=== PATIENT | female | born 1960 | race Caucasian/White ===

== ENCOUNTER 2018-04-16 19:48 | Emergency (ER) | payer OTHER ==
--- NOTE | 2018-04-16 19:58 | C.PDOC ---
History Of Present Illness 57 years old female, works as an ICU nurse, presents to ED for complaints of generalized urticaria associated with diffuse itching. Patient is tolerating PO and her own secretion. Unknown etiology. Denies fever, chills, nausea, or vomiting. Happened at work Time Seen by Provider: 04/16/18 19:57 Chief Complaint (Nursing): Abnormal Skin Integrity History Per: Patient History/Exam Limitations: no limitations Onset/Duration Of Symptoms: Hrs Current Symptoms Are (Timing): Still Present Quality Of Symptoms: Itching Severity: Moderate Pain Scale Rating Of: 4 Recent travel outside of the [place]: No Past Medical History Reviewed: Historical Data, Nursing Documentation, Vital Signs Vital Signs: Last Vital Signs Temp 98.1 F 04/16/18 19:50 Pulse 71 04/16/18 19:50 Resp 20 04/16/18 19:50 BP 160/85 H 04/16/18 19:50 Pulse Ox 98 04/16/18 20:11 - Medical History PMH: No Chronic Diseases Surgical History: No Surg Hx Family History: States: No Known Family Hx - Social History Hx Alcohol Use: No Hx Substance Use: No - Immunization History Hx Tetanus Toxoid Vaccination: No Hx Influenza Vaccination: Yes Hx Pneumococcal Vaccination: No Review Of Systems Constitutional: Negative for: Fever, Chills Gastrointestinal: Negative for: Nausea, Vomiting, Abdominal Pain, Diarrhea Skin: Positive for: Rash Neurological: Negative for: Weakness, Numbness Psych: Negative for: Suicidal ideation Physical Exam - Physical Exam Appears: Non-toxic, No Acute Distress Skin: Rash (Diffuse urticarial rash) Head: Normacephalic Eye(s): bilateral: Normal Inspection Nose: No Discharge Oral Mucosa: Moist Tongue: No Swelling Lips: No Swelling Throat: No Erythema, No Exudate, No Drooling Neck: Trachea Midline, Supple Chest: Symmetrical, No Tenderness Cardiovascular: Rhythm Regular, No Murmur Respiratory: No Decreased Breath Sounds, No Rales, No Rhonchi, No Wheezing Gastrointestinal/Abdominal: Soft, No Tenderness, No Distention Extremity: Normal ROM, No Deformity Extremity: Bilateral: Atraumatic, Normal Color And Temperature, Normal ROM Neurological/Psych: Oriented x3 (Awake and alert), Normal Speech (Speaking in full sentecnes; normal voice), Other (No focal deficits ) Gait: Steady ED Course And Treatment O2 Sat by Pulse Oximetry: 98 (RA) Pulse Ox Interpretation: Normal Progress Note: Administered Benadryl, Pepcid, SOLU-Medrol, and IV fluids. Re- Evaluation: - Patient now states that she used to be allergic to shrimp and lobster; and she had shrimp today. Reevaluation Time: 21:38 Reassessment Condition: Improved Critical Care Time - Critical Care Note Total Time (in mins): 30 Documented critical care: time excludes all time spent performing seperately billable procedures. Disposition Counseled Patient/Family Regarding: Studies Performed, Diagnosis, Need For Followup, Rx Given - Disposition Referrals: Tree Garcia MD [Staff Provider] - Disposition: HOME/ ROUTINE Disposition Time: 20:00 Condition: FAIR Additional Instructions: Please return if symptoms recur. ALso use benadrayl, pepcid, claritin,. Prescriptions: Epinephrine [Epipen] 0.3 mg IJ ONCE PRN #2 auto.injct PRN Reason: Anaphylaxis Prednisone [Deltasone] 20 mg PO DAILY #5 tablet Instructions: Hives, Skin Rash (DC) Forms: [employer] (Greenlandic) - Clinical Impression Clinical Impression: Allergic reaction - Scribe Statement The provider has reviewed the documentation as recorded by the Scribjeremy Gomez All medical record entries made by the Scribe were at my direction and personally dictated by me. I have reviewed the chart and agree that the record accurately reflects my personal performance of the history, physical exam, medical decision making, and the department course for this patient. I have also personally directed, reviewed, and agree with the discharge instructions and disposition.
--- NOTE | 2018-04-16 19:58 | C.PDOC ---
Time Seen by Provider: 04/16/18 19:57 Chief Complaint (Nursing): Abnormal Skin Integrity Past Medical History Vital Signs: Last Vital Signs Temp 98.1 F 04/16/18 19:50 Pulse 71 04/16/18 19:50 Resp 20 04/16/18 19:50 BP 160/85 H 04/16/18 19:50 Pulse Ox 98 04/16/18 19:50 - Social History Hx Alcohol Use: No Hx Substance Use: No - Immunization History Hx Tetanus Toxoid Vaccination: No Hx Influenza Vaccination: Yes Hx Pneumococcal Vaccination: No ED Course And Treatment O2 Sat by Pulse Oximetry: 98 Disposition Counseled Patient/Family Regarding: Studies Performed, Diagnosis - Disposition Disposition Time: 19:58
[2018-04-16] MEDS ORDERED: Sodium Chloride 0.9% 1,000 ML IV ONE (20:00)
[2018-04-16] MEDS ORDERED: DiphenhydrAMINE 50 mg/ml Inj IVP STA (20:00)
[2018-04-16] MEDS ORDERED: DiphenhydrAMINE 50 mg/ml Inj ONE (20:05)
[2018-04-16] MEDS ORDERED: Sodium Chloride 0.9% 1,000 ML ONE (20:06)
[2018-04-16 21:47] VITALS: BP 166/84; PULSE 67; RESP 16; TEMP 98.4; O2SAT 99
== END 2018-04-16 21:46 | disposition home or self-care (01) ==
LOC: C.ER 19:48
DX: L50.0 Allergic urticaria (principal)
CPT/HCPCS: 96361; 96374; 96375; 99284; J1200; J2930; J7030